=== PATIENT | female | born 1930 | race Caucasian/White ===

== ENCOUNTER 2017-01-19 20:02 | Emergency (ER) | payer OTHER ==
[~2017-01-19] VITALS: Ht 154.9 cm; Wt 45.9 kg
[~2017-01-19 20:02] MED LIST: CALCTAB98 PO; CIPR500T4 PO; MULT-65 PO; VITA400D PO
[2017-01-19 20:05] VITALS: BP 145/66; PULSE 81; RESP 16; TEMP 98.3; O2SAT 100
--- NOTE | 2017-01-19 20:26 | PD ---
HPI Chief Complaint: fall Time Seen by Provider: 20:21 Travel History International Travel<30 days: No Contact w/Intl Traveler<30days: No Traveled to known affect area: No History of Present Illness HPI 86-year-old female with history of hypertension, presents to the ER today because she had fallen while going down the stairs onto her right hip, is having hip pain. She is unable to put weight on the right hip in range the right hip secondary to pain. She denies any head injury, loss of consciousness , or any other injuries. She states it was a trip and fall, got her feet caught. Modifying Factors: None Associated Signs & Symptoms: Fall, right hip injury Risk Factors: Elderly PFSH Past Medical History Blood Disorders: No Heart Rhythm Problems: No Cancer: No Cardiovascular Problems: Yes (occas. pvc) High Cholesterol: No Chest Pain: No Congestive Heart Failure: No Endocrine: No Genitourinary: No Immune Disorder: No Musculoskeletal: Yes (osteoporais, osteopenia left femoral head) Neurologic: No Psychiatric: No Reproductive: No Respiratory: No Tubal Ligation: Yes Past Surgical History Appendectomy: Yes Cholecystectomy: Yes Hysterectomy: Yes Social History Alcohol Use: Yes (GLASS OF WINE AT NIGHT) Tobacco Use: No Substance Use: No Allergies-Medications (Allergen,Severity, Reaction): Coded Allergies: No Known Allergies (Unverified , 07/05/13) Reported Meds & Prescriptions Reported Meds & Active Scripts Active Reported Multiple Vitamin 1 Tab 1 Tab PO DAILY Review of Systems Except as stated in HPI: all other systems reviewed are Neg Physical Exam Narrative GENERAL: Well-developed elderly white female patient in mild distress. Awake and oriented 3. SKIN: Focused skin assessment warm/dry. HEAD: Atraumatic. Normocephalic. EYES: Pupils equal and round. No scleral icterus. No injection or drainage. ENT: No nasal bleeding or discharge. Mucous membranes pink and moist. NECK: Trachea midline. No JVD. Supple. CARDIOVASCULAR: Regular rate and rhythm. No murmur appreciated. RESPIRATORY: No accessory muscle use. Clear to auscultation. Breath sounds equal bilaterally. GASTROINTESTINAL: Abdomen soft, non-tender, nondistended. Hepatic and splenic margins not palpable. MUSCULOSKELETAL: No obvious deformities. No clubbing. No cyanosis. No edema. Pelvis: Stable, tender to palpation of the right hip area. Decreased range of motion of the right hip. NEUROLOGICAL: Awake and alert. No obvious cranial nerve deficits. Motor grossly within normal limits. Normal speech. PSYCHIATRIC: Appropriate mood and affect; insight and judgment normal. Data Data Last Documented VS Vital Signs Date Time Temp Pulse Resp B/P Pulse Ox O2 Delivery O2 Flow Rate FiO2 01/19/17 20:05 98.3 81 16 145/66 100 Orders Electrocardiogram (01/19/17 20:21) Complete Blood Count With Diff (01/19/17 20:21) Comprehensive Metabolic Panel (01/19/17 20:21) Prothrombin Time / Inr (Pt) (01/19/17 20:21) Act Partial Throm Time (Ptt) (01/19/17 20:21) Urinalysis - C+S If Indicated (01/19/17 20:21) Chest, Single Ap (01/19/17 20:21) Hip, Uni(Ap&Lat) W Ap Pelvis (01/19/17 20:21) Iv Access Insert/Monitor (01/19/17 20:21) Oximetry (01/19/17 20:21) Ecg Monitoring (01/19/17 20:21) Sodium Chloride 0.9% Flush (Ns Flush) (01/19/17 20:30) Labs Laboratory Tests Test 01/19/17 20:20 White Blood Count 15.1 TH/MM3 Red Blood Count 3.21 MIL/MM3 Hemoglobin 9.5 GM/DL Hematocrit 27.9 % Mean Corpuscular Volume 86.8 FL Mean Corpuscular Hemoglobin 29.5 PG Mean Corpuscular Hemoglobin 34.0 % Concent Red Cell Distribution Width 13.6 % Platelet Count 220 TH/MM3 Mean Platelet Volume 8.1 FL Neutrophils (%) (Auto) 83.3 % Lymphocytes (%) (Auto) 11.2 % Monocytes (%) (Auto) 4.7 % Eosinophils (%) (Auto) 0.3 % Basophils (%) (Auto) 0.5 % Neutrophils # (Auto) 12.6 TH/MM3 Lymphocytes # (Auto) 1.7 TH/MM3 Monocytes # (Auto) 0.7 TH/MM3 Eosinophils # (Auto) 0.0 TH/MM3 Basophils # (Auto) 0.1 TH/MM3 CBC Comment DIFF FINAL Differential Comment Prothrombin Time 10.7 SEC Prothromb Time International 1.0 RATIO Ratio Activated Partial 24.4 SEC Thromboplast Time Sodium Level 137 MEQ/L Potassium Level 3.5 MEQ/L Chloride Level 104 MEQ/L Carbon Dioxide Level 22.5 MEQ/L Anion Gap 11 MEQ/L Blood Urea Nitrogen 23 MG/DL Creatinine 0.74 MG/DL Estimat Glomerular Filtration 74 ML/MIN Rate Random Glucose 134 MG/DL Calcium Level 8.6 MG/DL Total Bilirubin 0.5 MG/DL Aspartate Amino Transf 97 U/L (AST/SGOT) Alanine Aminotransferase 54 U/L (ALT/SGPT) Alkaline Phosphatase 71 U/L Total Protein 6.4 GM/DL Albumin 3.5 GM/DL MDM Medical Decision Making Medical Screen Exam Complete: Yes Emergency Medical Condition: Yes Medical Record Reviewed: Yes Interpretation(s) Laboratory Tests Test 01/19/17 20:20 White Blood Count 15.1 TH/MM3 (4.0-11.0) Red Blood Count 3.21 MIL/MM3 (4.00-5.30) Hemoglobin 9.5 GM/DL (11.6-15.3) Hematocrit 27.9 % (35.0-46.0) Neutrophils (%) (Auto) 83.3 % (16.0-70.0) Neutrophils # (Auto) 12.6 TH/MM3 (1.8-7.7) Blood Urea Nitrogen 23 MG/DL (7-18) Estimat Glomerular Filtration 74 ML/MIN (>89) Rate Random Glucose 134 MG/DL (74-106) Aspartate Amino Transf 97 U/L (15-37) (AST/SGOT) Alanine Aminotransferase 54 U/L (10-53) (ALT/SGPT) Last 24 hours Impressions Chest X-Ray 01/19/172020 Signed Impressions: Service Date/Time: Thursday, January 19, 2017 20:35 - CONCLUSION: Hyperinflated lungs. Omari Dodge MD Differential Diagnosis Right hip injuryfractures versus dislocations versus contusions Narrative Course X-rays show a superior and inferior pubic ramus fracture on the right. No signs of hip fracture. Lab work is otherwise unremarkable. At this point, my plan would be to release the patient with follow-up to orthopedics. We'll give her symptomatic relief or pain. Patient lives with family and has help. We will give her a walker. Return for any worsening in pain or new symptoms as needed. The plan has discussed with her and she states understanding. Diagnosis Primary Impression: Pubic ramus fracture Med/Other Pt SpecificInfo: Prescription(s) given Scripts Hydrocodone-Acetaminophen (Lortab)5-325 Mg Tab1-2 Tab PO Q6H PRN (PAIN) #20 TAB Ref 0 Prov:Alyssa Tony MD 01/19/17 Disposition: 01 DISCHARGE HOME Condition: Stable Alyssa Tony MD January 19, 2017 20:26
[2017-01-19] MEDS ORDERED: SODIUM CHLORIDE 0.9% FLUSH 10 ML FLUSH IVF PRN (20:30)
[2017-01-19 20:50] LABS: AUTOMATED NEUTROPHIL # 12.6 TH/MM3 (1.8-7.7); BASOPHIL # 0.1 TH/MM3 (0-0.2); BASOPHIL % 0.5 % (0.0-2.0); EOSINOPHIL % 0.3 % (0.0-4.0); HEMATOCRIT 27.9 % (35.0-46.0); HEMO FLAGS DIFF FINAL; LYMPH % 11.2 % (9.0-44.0); LYMPHOCYTE # 1.7 TH/MM3 (1.0-4.8); MEAN CELL VOLUME 86.8 FL (80.0-100.0); MEAN CORPUSCULAR HEMOGLOBIN 29.5 PG (27.0-34.0); MONO % 4.7 % (0.0-8.0); NEUT % 83.3 % (16.0-70.0); PLATELET COUNT 220 TH/MM3 (150-450); RED BLOOD COUNT 3.21 MIL/MM3 (4.00-5.30); RED CELL DISTRIBUTION WIDTH 13.6 % (11.6-17.2); WHITE BLOOD COUNT 15.1 TH/MM3 (4.0-11.0)
--- NOTE | 2017-01-19 20:50 | RADRPT ---
EXAM DATE/TIME: 01/19/2017 20:35 [facility] COMPARISON: CHEST SINGLE AP, July 05, 2013, 9:45. INDICATIONS : Shortness of breath after falling on right side. MEDICAL HISTORY : None. SURGICAL HISTORY : None. ENCOUNTER: Initial ACUITY: 1 day PAIN SCORE: 0/10 LOCATION: Bilateral chest FINDINGS: A single view of the chest demonstrates the lungs to be symmetrically aerated without evidence of mas s, infiltrate or effusion. The lungs are hyperinflated. The cardiomediastinal contours are unremarka ble. Osseous structures are intact. CONCLUSION: Hyperinflated lungs. Omari Dodge MD on January 19, 2017 at 20:48 Board Certified Radiologist. This report was verified electronically.
[2017-01-19] MEDS ORDERED: MULTTAB67 PO (20:55)
--- NOTE | 2017-01-19 20:56 | RADRPT ---
EXAM DATE/TIME: 01/19/2017 20:36 [facility] COMPARISON: No previous studies available for comparison. INDICATIONS : Right hip/pelvic pain after fall. MEDICAL HISTORY : None. SURGICAL HISTORY : None. ENCOUNTER: Initial ACUITY: 1 day PAIN SCORE: 10/10 LOCATION: Right hip FINDINGS: There is fracturing of the superior and inferior pubic rami on the right. No other fracture is seen. The hip joints are aligned. The sacroiliac joints are intact. The pubic symphysis is aligned. CONCLUSION: Fracturing of the superior and inferior pubic rami on the right. Omari Dodge MD on January 19, 2017 at 20:50 Board Certified Radiologist. This report was verified electronically.
[2017-01-19 21:00] LABS: APTT (PATIENT) 24.4 SEC (24.3-30.1); PROTHROMBIN TIME - PATIENT 10.7 SEC (9.8-11.6)
[2017-01-19 21:13] LABS: ANION GAP 11 MEQ/L (5-15); AST (GOT) 97 U/L (15-37); BICARBONATE 22.5 MEQ/L (21.0-32.0); BLOOD UREA NITROGEN 23 MG/DL (7-18); CHLORIDE 104 MEQ/L (98-107); GLOMERULAR FILTRATION RATE 74 ML/MIN (>89); POTASSIUM 3.5 MEQ/L (3.5-5.1); SODIUM (NA) 137 MEQ/L (136-145)
[2017-01-19 21:25] LABS: ALKALINE PHOSPHATASE 71 U/L (45-117); ALT (GPT) 54 U/L (10-53); TOTAL BILIRUBIN ADULT 0.5 MG/DL (0.2-1.0)
[2017-01-19] MEDS ORDERED: HYDR-3533 PO (21:38)
[2017-01-19] MEDS ORDERED: WALKER/ADULT/FO1 MIS (21:42)
[2017-01-19] MEDS ORDERED: ACETAMINOPHEN/HYDROcodone 325 MG/5 MG TAB PO ONE (22:00)
--- NOTE | 2017-01-20 16:44 | EKG ---
Date Performed: 01/19/2017 Time Performed: 21:06:42 PTAGE: 86 years EKG: Sinus rhythm INCOMPLETE RIGHT BUNDLE BRANCH BLOCK BORDERLINE ECG NO PREVIOUS TRACING DOCTOR: Maria Teresa Galarza Interpretating Date/Time 01/20/2017 16:41:29
== END 2017-01-19 23:35 | disposition home or self-care (01) ==
LOC: NEPE 20:02
DX: S32.511A Fracture of superior rim of right pubis, initial encounter for closed fracture (principal); I45.10 Unspecified right bundle-branch block; W10.9XXA Fall (on) (from) unspecified stairs and steps, initial encounter
CPT/HCPCS: 71010; 73502; 80053; 85025; 85610; 85730; 93005

== ENCOUNTER 2017-09-21 10:39 | Emergency (ER) | payer OTHER ==
[~2017-09-21 10:39] MED LIST changes: -CALCTAB98 PO; -CIPR500T4 PO; +HYDR-3533 PO; -MULT-65 PO; +MULTTAB67 PO; -VITA400D PO; +WALKER/ADULT/FO1 MIS
[2017-09-21 10:41] VITALS: BP 149/67; PULSE 64; RESP 16; TEMP 97.5; O2SAT 99
[2017-09-21] MEDS ORDERED: SODIUM CHLORID 0.9% 500 ML INJ 500 ML IV ONE (11:15)
--- NOTE | 2017-09-21 11:18 | PD ---
HPI Chief Complaint: Altered Mental Status Time Seen by Provider: 11:01 Travel History International Travel<30 days: No Contact w/Intl Traveler<30days: No Traveled to known affect area: No History of Present Illness HPI The chin is a 87-year-old female who presents to the emergency department with her daughter for evaluation of progressing dementia, hearing voices, and hallucinations. The daughter states the patient has a history of early dementia, was recently placed on Lexapro and had the Lexapro increased from 5 mg daily to 10 mg daily. The daughter states that since the increase in the Lexapro in July the patient has had increasing symptoms of dementia as well as auditory hallucinations. The patient does hear different voices in her head, states these voices are intermittent. She denies any history of schizophrenia or schizoaffective disorder. The patient was seen on an outpatient basis, but had no imaging such as CT of the brain or MRI, the daughter is unsure if they checked her thyroid studies. The patient was recently seen for a UTI and influenza in [place], has been taking her Cipro intermittently but not as instructed. The patient denies any current physical complaints such as chest pain, shortness of breath, nausea, vomiting, or abdominal pain. PFSH Past Medical History Blood Disorders: No Anxiety: Yes Heart Rhythm Problems: No Cancer: No Cardiovascular Problems: Yes (occas. pvc) High Cholesterol: Yes Chest Pain: No Congestive Heart Failure: No Diminished Hearing: Yes Endocrine: No Gastrointestinal Disorders: Yes (gallbladder) Hypertension: Yes Immune Disorder: No Musculoskeletal: Yes (osteoporais, osteopenia left femoral head) Tubal Ligation: Yes Past Surgical History Appendectomy: Yes Cholecystectomy: Yes Hysterectomy: Yes Other Surgery: Yes Social History Alcohol Use: Yes (GLASS OF WINE AT NIGHT) Tobacco Use: No Substance Use: No Allergies-Medications (Allergen,Severity, Reaction): Coded Allergies: No Known Allergies (Unverified , 07/05/13) Reported Meds & Prescriptions Reported Meds & Active Scripts Active Seroquel (Quetiapine Fumarate) 25 Mg Tab 12.5 Mg PO BID 30 Days Walker/Adult/Folding (Device) 1 Mis Mis 1 Ea .ROUTE DIRECTED Lortab (Hydrocodone-Acetaminophen) 5-325 Mg Tab 1-2 Tab PO Q6H PRN Reported Celecoxib 100 Mg Cap 100 Mg PO BID Pataday Opth 0.2% (Olopatadine HCl) 0.2 % Drops 1 Drop EACH EYE DAILY Mometasone Nasal [place] 50 Mcg/Act [place] 2 [place] EACH NARE DAILY Tramadol-Acetaminophen 37.5-325 mg Tab 1 Tab PO Q6H PRN Advair Diskus Inh (Fluticasone-Salmeterol Inh) 250-50 Mcg/Blist Aer 1 Puff INH BID Rinse mouth after use. Bisoprolol (Bisoprolol Fumarate) 5 Mg Tab 5 Mg PO DAILY Atorvastatin (Atorvastatin Calcium) 80 Mg Tab 80 Mg PO HS Pantoprazole (Pantoprazole Sodium) 40 Mg Tab 40 Mg PO DAILY Xarelto (Rivaroxaban) 20 Mg Tab 20 Mg PO DAILY Spiriva Handihaler (Tiotropium Inh) 18 Mcg Cap 18 Mcg INH DAILY 1 capsule = 18 mcg Multiple Vitamin 1 Tab 1 Tab PO DAILY Review of Systems Except as stated in HPI: all other systems reviewed are Neg Cardiovascular: No: Chest Pain or Discomfort Respiratory: No: Shortness of Breath Gastrointestinal: No: Nausea, Vomiting, Abdominal Pain Neurologic: Positive: Change in Mentation Psychiatric: Positive: Depression Physical Exam Narrative GENERAL: Awake, alert, pleasant 87 year-old female who appears her stated age and is in no acute respiratory distress. SKIN: Focused skin assessment warm/dry. HEAD: Atraumatic. Normocephalic. EYES: Pupils equal and round. 3 mm bilateral and reactive. ENT: No nasal bleeding or discharge. Upper dentures in place. NECK: Trachea midline. No JVD. CARDIOVASCULAR: Regular rate and rhythm. No murmur appreciated. RESPIRATORY: No accessory muscle use. Clear to auscultation. Breath sounds equal bilaterally. GASTROINTESTINAL: Abdomen soft, non-tender, nondistended. No rebound tenderness. MUSCULOSKELETAL: No obvious deformities. No clubbing. No cyanosis. No edema. NEUROLOGICAL: Awake and alert. No obvious cranial nerve deficits. Motor grossly within normal limits. Normal speech. Nonfocal. Oriented to person, place, month, year, and mica patcher. PSYCHIATRIC: Appropriate mood and affect; insight and judgment normal. Data Data Last Documented VS Vital Signs Date Time Temp Pulse Resp B/P (MAP) Pulse Ox O2 Delivery O2 Flow Rate FiO2 09/21/17 14:18 66 116/57 (76) 100 Room Air 09/21/17 10:41 97.5 16 Orders Orders Complete Blood Count With Diff (09/21/17 11:09) Comprehensive Metabolic Panel (09/21/17 11:09) Thyroid Stimulating Hormone (09/21/17 11:09) Urinalysis - C+S If Indicated (09/21/17 11:09) Electrocardiogram (09/21/17 11:09) Psych Screen (09/21/17 11:09) Drug Screen, Random Urine (09/21/17 11:09) Ct Brain W/O Iv Contrast(Rout) (09/21/17 ) Sodium Chlorid 0.9% 500 Ml Inj (Ns 500 M (09/21/17 11:15) Ed Discharge Order (09/21/17 15:04) Labs Laboratory Tests Test 09/21/17 11:15 09/21/17 11:16 Urine Color YELLOW Urine Turbidity CLEAR Urine pH 6.5 Urine Specific [place] 1.012 Urine Protein NEG mg/dL Urine Glucose (UA) NEG mg/dL Urine Ketones NEG mg/dL Urine Occult Blood NEG Urine Nitrite NEG Urine Bilirubin NEG Urine Urobilinogen LESS THAN 2.0 MG/DL Urine Leukocyte Esterase NEG Urine RBC 1 /hpf Urine WBC 1 /hpf Urine Squamous Epithelial Cells <1 /hpf Urine Mucus FEW /lpf Microscopic Urinalysis Comment CULT NOT INDICATED Urine Opiates Screen NEG Urine Barbiturates Screen NEG Urine Amphetamines Screen NEG Urine Benzodiazepines Screen NEG Urine Cocaine Screen NEG Urine Cannabinoids Screen NEG White Blood Count 8.2 TH/MM3 Red Blood Count 4.17 MIL/MM3 Hemoglobin 12.7 GM/DL Hematocrit 36.5 % Mean Corpuscular Volume 87.6 FL Mean Corpuscular Hemoglobin 30.4 PG Mean Corpuscular Hemoglobin Concent 34.7 % Red Cell Distribution Width 13.7 % Platelet Count 358 TH/MM3 Mean Platelet Volume 7.5 FL Neutrophils (%) (Auto) 63.6 % Lymphocytes (%) (Auto) 25.0 % Monocytes (%) (Auto) 8.3 % Eosinophils (%) (Auto) 2.9 % Basophils (%) (Auto) 0.2 % Neutrophils # (Auto) 5.2 TH/MM3 Lymphocytes # (Auto) 2.0 TH/MM3 Monocytes # (Auto) 0.7 TH/MM3 Eosinophils # (Auto) 0.2 TH/MM3 Basophils # (Auto) 0.0 TH/MM3 CBC Comment DIFF FINAL Differential Comment Blood Urea Nitrogen 16 MG/DL Creatinine 0.81 MG/DL Random Glucose 100 MG/DL Total Protein 7.1 GM/DL Albumin 3.7 GM/DL Calcium Level 8.7 MG/DL Alkaline Phosphatase 81 U/L Aspartate Amino Transf (AST/SGOT) 30 U/L Alanine Aminotransferase (ALT/SGPT) 19 U/L Total Bilirubin 0.9 MG/DL Sodium Level 138 MEQ/L Potassium Level 3.8 MEQ/L Chloride Level 103 MEQ/L Carbon Dioxide Level 25.8 MEQ/L Anion Gap 9 MEQ/L Estimat Glomerular Filtration Rate 67 ML/MIN Thyroid Stimulating Hormone 3rd Gen 1.150 uIU/ML MDM Medical Decision Making Medical Screen Exam Complete: Yes Emergency Medical Condition: Yes Medical Record Reviewed: Yes Interpretation(s) EKG reveals sinus rhythm with occasional ectopic or premature complex. Q wave noted in lead V1 and V2. Last Impressions Head CT 09/21/17 0000 Signed Impressions: Service Date/Time: Thursday, September 21, 2017 11:22 - CONCLUSION: Slight atrophic and small vessel ischemic changes without any evidence for acute hemorrhage or mass effect. Xiao Holt MD Laboratory Tests Test 09/21/17 11:15 09/21/17 11:16 Urine Color YELLOW Urine Turbidity CLEAR Urine pH 6.5 Urine Specific [place] 1.012 Urine Protein NEG mg/dL Urine Glucose (UA) NEG mg/dL Urine Ketones NEG mg/dL Urine Occult Blood NEG Urine Nitrite NEG Urine Bilirubin NEG Urine Urobilinogen LESS THAN 2.0 MG/DL Urine Leukocyte Esterase NEG Urine RBC 1 /hpf Urine WBC 1 /hpf Urine Squamous Epithelial Cells <1 /hpf Urine Mucus FEW /lpf Microscopic Urinalysis Comment CULT NOT INDICATED Urine Opiates Screen NEG Urine Barbiturates Screen NEG Urine Amphetamines Screen NEG Urine Benzodiazepines Screen NEG Urine Cocaine Screen NEG Urine Cannabinoids Screen NEG White Blood Count 8.2 TH/MM3 Red Blood Count 4.17 MIL/MM3 Hemoglobin 12.7 GM/DL Hematocrit 36.5 % Mean Corpuscular Volume 87.6 FL Mean Corpuscular Hemoglobin 30.4 PG Mean Corpuscular Hemoglobin Concent 34.7 % Red Cell Distribution Width 13.7 % Platelet Count 358 TH/MM3 Mean Platelet Volume 7.5 FL Neutrophils (%) (Auto) 63.6 % Lymphocytes (%) (Auto) 25.0 % Monocytes (%) (Auto) 8.3 % Eosinophils (%) (Auto) 2.9 % Basophils (%) (Auto) 0.2 % Neutrophils # (Auto) 5.2 TH/MM3 Lymphocytes # (Auto) 2.0 TH/MM3 Monocytes # (Auto) 0.7 TH/MM3 Eosinophils # (Auto) 0.2 TH/MM3 Basophils # (Auto) 0.0 TH/MM3 CBC Comment DIFF FINAL Differential Comment Blood Urea Nitrogen 16 MG/DL Creatinine 0.81 MG/DL Random Glucose 100 MG/DL Total Protein 7.1 GM/DL Albumin 3.7 GM/DL Calcium Level 8.7 MG/DL Alkaline Phosphatase 81 U/L Aspartate Amino Transf (AST/SGOT) 30 U/L Alanine Aminotransferase (ALT/SGPT) 19 U/L Total Bilirubin 0.9 MG/DL Sodium Level 138 MEQ/L Potassium Level 3.8 MEQ/L Chloride Level 103 MEQ/L Carbon Dioxide Level 25.8 MEQ/L Anion Gap 9 MEQ/L Estimat Glomerular Filtration Rate 67 ML/MIN Thyroid Stimulating Hormone 3rd Gen 1.150 uIU/ML Differential Diagnosis Differential diagnosis includes delirium, Alzheimer's disease, UTI, hypothyroidism, frontal brain lesion, subdural hemorrhage, hyponatremia, medication side effect. Narrative Course IV was established, labs are drawn and sent, and the patient was placed on cardiac telemetry monitoring and continuous pulse oximetry monitoring. CT of the brain was obtained. UA was sent to lab. TSH was sent to lab. Psychiatric evaluation was ordered. CT the brain reveals atrophic changes and chronic small vessel seeming changes, no acute findings. TSH is normal. UA is unremarkable. Sodium is normal. Laboratory evaluation is essentially unremarkable. It appears the patient has some degree of dementia, recent auditory hallucinations which may be psychiatric versus medication induced. Therefore, psychiatric evaluation was ordered. Patient is medically cleared to be evaluated by psychiatry. The patient was evaluated by the psychiatrist who offered admission, however, patient and family declined admission. The patient recommended starting Seroquel 12.5 mg twice a day and gave the family some information regards to outpatient follow-up with a psychiatrist. The family is comfortable with this plan of care and disposition. The patient will be discharged home with her daughter. They are advised to return if symptoms worsen or progress. Diagnosis Primary Impression: Dementia Qualified Codes: F03.90 - Unspecified dementia without behavioral disturbance Additional Impression: Hallucinations Patient Instructions: General Instructions Additional Instructions: Please provide the family a copy of the CT results and lab results at discharge. Seroquel as directed by psychiatry. Follow-up with a psychiatrist on an outpatient basis. Return if symptoms worsen or progress. Med/Other Pt SpecificInfo: Prescription(s) given Scripts Quetiapine (Seroquel) 25 Mg Tab 12.5 MG PO BID for 30 Days, #30 TAB 0 Refills Prov: Gamal Dawn MD 09/21/17 Disposition: 01 DISCHARGE HOME Condition: Stable Gamal Dawn MD Sep 21, 2017 11:18
--- NOTE | 2017-09-21 11:40 | RADRPT ---
EXAM DATE/TIME: 09/21/2017 11:22 [facility] COMPARISON: No previous studies available for comparison. INDICATIONS : Altered mental status, confusion. RADIATION DOSE: 36.11 CTDIvol (mGy) MEDICAL HISTORY : Cardiovascular disease. Hypertension. SURGICAL HISTORY : None. ENCOUNTER: Initial ACUITY: 1 day PAIN SCALE: 0/10 LOCATION: cranial TECHNIQUE: Multiple contiguous axial images were obtained of the head. Using automated exposure control and adj ustment of the mA and/or kV according to patient size, radiation dose was kept as low as reasonably a chievable to obtain optimal diagnostic quality images. DICOM format image data is available electro nically for review and comparison. FINDINGS: There is no evidence for intracranial hemorrhage, mass effect, mass lesions, or edema. The visualize d bony structures appear intact. Slight degree of brain atrophy is seen. Slight periventricular whit e matter changes are seen nonspecific mostly consistent with chronic small vessel ischemic changes. There are no signs of acute infarction for technique. CONCLUSION: Slight atrophic and small vessel ischemic changes without any evidence for acute hemorrhage or mass effect. Xiao Holt MD on September 21, 2017 at 11:37 Board Certified Radiologist. This report was verified electronically.
[2017-09-21 11:41] LABS: AUTOMATED NEUTROPHIL # 5.2 TH/MM3 (1.8-7.7); BASOPHIL % 0.2 % (0.0-2.0); EOSINOPHIL # 0.2 TH/MM3 (0-0.4); EOSINOPHIL % 2.9 % (0.0-4.0); HEMATOCRIT 36.5 % (35.0-46.0); HEMOGLOBIN 12.7 GM/DL (11.6-15.3); MEAN CELL VOLUME 87.6 FL (80.0-100.0); MEAN CORPUSCULAR HEMOGLOBIN 30.4 PG (27.0-34.0); MEAN CORPUSCULAR HGB CONC 34.7 % (32.0-36.0); MEAN PLATELET VOLUME 7.5 FL (7.0-11.0); MONO % 8.3 % (0.0-8.0); MONOCYTE # 0.7 TH/MM3 (0-0.9); NEUT % 63.6 % (16.0-70.0); PLATELET COUNT 358 TH/MM3 (150-450); RED BLOOD COUNT 4.17 MIL/MM3 (4.00-5.30); RED CELL DISTRIBUTION WIDTH 13.7 % (11.6-17.2); WHITE BLOOD COUNT 8.2 TH/MM3 (4.0-11.0)
[2017-09-21 11:51] LABS: BILIRUBIN, URINE NEG (NEG); BLOOD, URINE NEG (NEG); GLUCOSE,URINE NEG (NEG); KETONE, URINE NEG (NEG); MUCUS URINE FEW /lpf (OCC); NITRITE,URINE NEG (NEG); PH, URINE 6.5 (5.0-8.5); SQUAMOUS EPITHELIAL CELL URINE <1 /hpf (0-5); URINE COLOR YELLOW (YELLW/STRAW); URINE LEUKOCYTE ESTERASE NEG (NEG)
[2017-09-21 12:04] LABS: ALBUMIN 3.7 GM/DL (3.4-5.0); AST (GOT) 30 U/L (15-37); BICARBONATE 25.8 MEQ/L (21.0-32.0); BLOOD UREA NITROGEN 16 MG/DL (7-18); CALCIUM 8.7 MG/DL (8.5-10.1); CHLORIDE 103 MEQ/L (98-107); CREATININE 0.81 MG/DL (0.50-1.00); GLOMERULAR FILTRATION RATE 67 ML/MIN (>89); GLUCOSE,RANDOM 100 MG/DL (74-106); SODIUM (NA) 138 MEQ/L (136-145)
[2017-09-21 12:05] LABS: ALT (GPT) 19 U/L (10-53)
[2017-09-21 12:15] LABS: ALKALINE PHOSPHATASE 81 U/L (45-117); TOTAL BILIRUBIN ADULT 0.9 MG/DL (0.2-1.0); TOTAL PROTEIN 7.1 GM/DL (6.4-8.2)
[2017-09-21 13:00] VITALS: BP 167/62; PULSE 67; O2SAT 100
[2017-09-21 14:18] VITALS: BP 116/57; PULSE 66; O2SAT 100
[2017-09-21] MEDS ORDERED: ADVA250A INH (14:25)
[2017-09-21] MEDS ORDERED: SPIRCAP INH (14:25)
[2017-09-21] MEDS ORDERED: TRAM-388 PO (14:25)
[2017-09-21] MEDS ORDERED: BISO5TAB5 PO (14:25)
[2017-09-21] MEDS ORDERED: ATOR80TA45 PO (14:25)
[2017-09-21] MEDS ORDERED: PATA0.2S EACH EYE (14:25)
[2017-09-21] MEDS ORDERED: MOME1SPR2 EACH NARE (14:25)
[2017-09-21] MEDS ORDERED: CELE1CAP6 PO (14:25)
[2017-09-21] MEDS ORDERED: PANT40TA3 PO (14:25)
[2017-09-21] MEDS ORDERED: XARE20TA PO (14:25)
[2017-09-21] MEDS ORDERED: SERO25TA PO (14:52)
--- NOTE | 2017-09-21 15:16 | PD.PSY.CON ---
Provisional Diagnosis Admission Date [place] I. Unspecified psychosis, rule out late onset schizophrenia, rule out major neurocognitive disorder [place] II. Deferred [place] III. Hypertension History of Present Illness Service Psychiatry Consult Requested By ER team Reason for Consult Psychosis Primary Care Physician Celia Kaufman MD HPI The patient is 87-year-old woman, domiciled with her daughter, , with psychiatric history of anxiety, no previous psychiatric hospitalizations, no previous suicidal attempts, she has been in Lexapro 10 mg in the past, medical history hypertension, who presents to the emergency department with her daughter for evaluation of progressing dementia, hearing voices, and hallucinations. Medical workup has been done, patient is now medically cleared, labs were reviewed, CT scan basically unremarkable. Chart was reviewed. Collateral information from her daughter obtained. On psychiatric evaluation the patient is calm, cooperative, very pleasant. The patient reports that for at least the last 4 months she has been having perceptual disturbances. She has been experiencing usually visual and auditory hallucinations in the evening of people, kids and adults, sometimes animal coming inside her room and making derogatory comments toward her and sometimes commanding her to do things. She says that in the last weeks these perceptual disturbances has been progressing and increasing in its severity, frequency and intensity. She said that sometimes she cannot define the hallucinations from the reality and she becomes very anxious and scared. She says that what is a scary is that in the last day the people that she sees "are cruel with me". The patient also has been increasingly paranoid toward her kids, making accusatory comments and become very guarded. The patient denies depressive symptoms, she denies anhedonia, she denies hopelessness, she denies helplessness , she denies suicidal and homicidal ideation. She reports very good protective factors, she is goal oriented and future oriented. The patient is completely oriented 3. Mini-Mental at this moment is 27, which just some deficit in recent recall. Draw clock test is perfect. She reports taking a glass of wine 2 or 3 times per day, denies the use of illegal drugs. Review of Systems Constitutional: DENIES: Diaphoretic episodes, Fatigue, Fever, Weight gain, Weight loss, Chills, Dizziness, Change in appetite, Night Sweats Endocrine: DENIES: Abnorml menstrual pattern, Heat/cold intolerance, Polydipsia , Polyuria, Polyphagia Eyes: DENIES: Blurred vision, Diplopia, Eye inflammation, Eye pain, Vision loss , Photosensitivity, Double Vision Ears, nose, mouth, throat: DENIES: Tinnitus, Hearing loss, Vertigo, Nasal discharge, Oral lesions, Throat pain, Hoarseness, Ear Pain, Running Nose, Epistaxis, Sinus Pain, Toothache, Odynophagia Respiratory: DENIES: Apneas, Cough, Snoring, Wheezing, Hemoptysis, Sputum production, Shortness of breath Cardiovascular: DENIES: Chest pain, Palpitations, Syncope, Dyspnea on Exertion , PND, Lower Extremity Edema, Orthopnea, Claudication Gastrointestinal: DENIES: Abdominal pain, Black stools, Bloody stools, Constipation, Diarrhea, Nausea, Vomiting, Difficulty Swallowing, Anorexia Musculoskeletal: DENIES: Joint pain, Muscle aches, Stiffness, Joint Swelling, Back pain, Neck pain Integumentary: DENIES: Abnormal pigmentation, Pruritus, Rash, Nail changes, Breast masses, Breast skin changes, Nipple discharge Hematologic/lymphatic: DENIES: Bruising, Lymphadenopathy Immunologic/allergic: DENIES: Eczema, Urticaria Neurologic: DENIES: Abnormal gait, Headache, Localized weakness, Paresthesias, Seizures, Speech Problems, Tremor, Poor Balance Psychiatric: DENIES: Anxiety, Confusion, Mood changes, Depression, Hallucinations, Agitation, Suicidal Ideation, Homicidal Ideation, Delusions Past Family Social History Coded Allergies: No Known Allergies (Unverified , 07/05/13) Active Scripts Quetiapine (Seroquel) 25 Mg Tab, 12.5 MG PO BID for 30 Days, #30 TAB 0 Refills Prov:Gamal Dawn MD 09/21/17 Walker/Adult/Folding (Walker/Adult/Folding) 1 Mis Mis, 1 EA .ROUTE DIRECTED, #1 EA 0 Refills Prov:Alyssa Tony MD 01/19/17 Hydrocodone-Acetaminophen (Lortab) 5-325 Mg Tab, 1-2 TAB PO Q6H Y for PAIN, #20 TAB 0 Refills Prov:Alyssa Tony MD 01/19/17 Reported Medications Celecoxib (Celecoxib) 100 Mg Cap, 100 MG PO BID for Pain Management, CAP 0 Refills 09/21/17 Olopatadine Opth 0.2% (Pataday Opth 0.2%) 0.2 % Drops, 1 DROP EACH EYE DAILY for Allergies, #1 BOTTLE 0 Refills 09/21/17 Mometasone Nasal Ragan (Mometasone Nasal Ragan) 50 Mcg/Act Ragan, 2 SPRAY EACH NARE DAILY for Allergy Management, #1 BOTTLE 0 Refills 09/21/17 Tramadol-Acetaminophen (Tramadol-Acetaminophen) 37.5-325 mg Tab, 1 TAB PO Q6H Y for PAIN, TAB 0 Refills 09/21/17 Fluticasone-Salmeterol Inh (Advair Diskus Inh) 250-50 Mcg/Blist Aer, 1 PUFF INH BID, #1 INHALER 0 Refills Rinse mouth after use. 09/21/17 Bisoprolol (Bisoprolol) 5 Mg Tab, 5 MG PO DAILY for Blood Pressure Management, # 30 TAB 0 Refills 09/21/17 Atorvastatin (Atorvastatin) 80 Mg Tab, 80 MG PO HS for Cholesterol Management, # 30 TAB 0 Refills 09/21/17 Pantoprazole (Pantoprazole) 40 Mg Tab, 40 MG PO DAILY for Reflux, #30 TAB 0 Refills 09/21/17 Rivaroxaban (Xarelto) 20 Mg Tab, 20 MG PO DAILY for Blood Clot Prevention, TAB 0 Refills 09/21/17 Tiotropium Inh (Spiriva Handihaler) 18 Mcg Cap, 18 MCG INH DAILY for COPD, #30 CAP 0 Refills 1 capsule = 18 mcg 09/21/17 Multiple Vitamin (Multiple Vitamin) 1 Tab, 1 TAB PO DAILY for Nutritional Supplement, TAB 0 Refills 01/19/17 Family Psych History no family psychiatric history Social History Patient was born and raised in [place], she lives in [place] alone, but her daughter is her neighbor, she is , her highest level of education is has Patient's Strengths (min. 2) Family support Physical Exam No tremors, no EPS, no withdrawal, no psychomotor agitation retardation Vital Signs Vital Signs Date Time Temp Pulse Resp B/P (MAP) Pulse Ox O2 Delivery O2 Flow Rate FiO2 09/21/17 14:18 66 116/57 (76) 100 Room Air 09/21/17 10:41 97.5 16 Lab Results Test 09/21/17 11:15 09/21/17 11:16 Urine Color YELLOW Urine Turbidity CLEAR Urine pH 6.5 Urine Specific [place] 1.012 Urine Protein NEG mg/dL Urine Glucose (UA) NEG mg/dL Urine Ketones NEG mg/dL Urine Occult Blood NEG Urine Nitrite NEG Urine Bilirubin NEG Urine Urobilinogen LESS THAN 2.0 MG/DL Urine Leukocyte Esterase NEG Urine RBC 1 /hpf Urine WBC 1 /hpf Urine Squamous Epithelial Cells <1 /hpf Urine Mucus FEW /lpf Microscopic Urinalysis Comment CULT NOT INDICATED Urine Opiates Screen NEG Urine Barbiturates Screen NEG Urine Amphetamines Screen NEG Urine Benzodiazepines Screen NEG Urine Cocaine Screen NEG Urine Cannabinoids Screen NEG White Blood Count 8.2 TH/MM3 Red Blood Count 4.17 MIL/MM3 Hemoglobin 12.7 GM/DL Hematocrit 36.5 % Mean Corpuscular Volume 87.6 FL Mean Corpuscular Hemoglobin 30.4 PG Mean Corpuscular Hemoglobin Concent 34.7 % Red Cell Distribution Width 13.7 % Platelet Count 358 TH/MM3 Mean Platelet Volume 7.5 FL Neutrophils (%) (Auto) 63.6 % Lymphocytes (%) (Auto) 25.0 % Monocytes (%) (Auto) 8.3 % Eosinophils (%) (Auto) 2.9 % Basophils (%) (Auto) 0.2 % Neutrophils # (Auto) 5.2 TH/MM3 Lymphocytes # (Auto) 2.0 TH/MM3 Monocytes # (Auto) 0.7 TH/MM3 Eosinophils # (Auto) 0.2 TH/MM3 Basophils # (Auto) 0.0 TH/MM3 CBC Comment DIFF FINAL Differential Comment Blood Urea Nitrogen 16 MG/DL Creatinine 0.81 MG/DL Random Glucose 100 MG/DL Total Protein 7.1 GM/DL Albumin 3.7 GM/DL Calcium Level 8.7 MG/DL Alkaline Phosphatase 81 U/L Aspartate Amino Transf (AST/SGOT) 30 U/L Alanine Aminotransferase (ALT/SGPT) 19 U/L Total Bilirubin 0.9 MG/DL Sodium Level 138 MEQ/L Potassium Level 3.8 MEQ/L Chloride Level 103 MEQ/L Carbon Dioxide Level 25.8 MEQ/L Anion Gap 9 MEQ/L Estimat Glomerular Filtration Rate 67 ML/MIN Thyroid Stimulating Hormone 3rd Gen 1.150 uIU/ML Mental Status Examination Appearance: Appropriate Consciousness: Alert Orientation: x4 Motor Activity: Normal gait Speech: Unremarkable Language: Adequate Fund of Knowledge: Adequate Attention and Concentration: Adequate Memory: Impaired Mood: Appropriate Affect: Appropriate Thought Process & Associations: Intact Thought Content: Appropriate Hallucination Type: None Delusion Type: None Suicidal Ideation: No Suicidal Plan: No Suicidal Intention: No Homicidal Ideation: No Homicidal Plan: No Homicidal Intention: No Insight: Adequate Judgment: Adequate Assessment & Plan Problem List: (1) Unspecified psychosis ICD Codes: F29 - Unspecified psychosis not due to a substance or known physiological condition Assessment & Plan: On psychiatric evaluation today the patient presents with about 2-3 months of persistent, everyday, increased in intensity, severity and frequency in the last 2 weeks visual and auditory hallucinations and also paranoia. The patient reports that usually at night she sees people coming inside her house talking to her and making derogatory comments about her behavior. The patient seems to be partially insightful about the nature of these perceptual disturbances. She reports feeling anxious and scared and sometimes she reacts negatively to this psychosis. Her daughter also reports that the patient has been increasingly paranoid toward her closest family members and friends. She has been making accusatory comments of her daughter being a stripper at not going to work and wanting to harm her. The patient denies depressive symptoms, she denies anhedonia, she denies hopelessness, she denies helplessness, she denies suicidal and homicidal ideation, she reports several protective factors for depression and suicidality, including no previous psychiatric history, very good family and social support, strong moral and shinto beliefs. The patient is fully oriented 3, she has a conserve abstraction, executive function, language skills, naming, concentration, attention. Her Mini-Mental is 27 of 30, draw clock test is excellent. Her CT shows Slight atrophic and small vessel ischemic changes without any evidence for acute hemorrhage or mass effect which might be consistent with early dementia. My impression is that current neuropsychiatric symptoms are related with mild neurocognitive disorder rather than a primary psychotic disorder. Obviously, more longitudinal observation and further investigation is needed. Neuropsychological testing are highly recommended. Labs seems to be normal. There is not need of involuntary psychiatric admission at this moment. I recommended a voluntary psychiatric admission, but patient and daughter declined. I recommend Seroquel 12.5 mg twice a day and to continue titration in outpatient basis. Several resources/information for geriatric psychiatry in the community were given to the patient. Assessment & Plan Estimated LOS: Cooper Dotson MD Sep 21, 2017 15:16
[2017-09-21 15:21] VITALS: BP 137/71
--- NOTE | 2017-09-22 12:36 | EKG ---
Date Performed: 09/21/2017 Time Performed: 12:12:20 PTAGE: 87 years EKG: Sinus rhythm WITH OCCASIONAL ECTOPIC PREMATURE COMPLEXES POSSIBLE RIGHT VENTRICULAR CONDUCTION DELAY SEPTAL MYOCA RDIAL INFARCTION ABNORMAL ECG Since PREVIOUS TRACING , no significant change noted PREVIOUS TRACIN01/19/2017 21.06 DOCTOR: Alfredito Dong Interpretating Date/Time 09/22/2017 12:35:40
== END 2017-09-21 15:27 | disposition home or self-care (01) ==
LOC: NEPC 10:39
DX: F03.90 Unspecified dementia, unspecified severity, without behavioral disturbance, psychotic disturbance, mood disturbance, and anxiety (principal); R44.0 Auditory hallucinations; R44.1 Visual hallucinations; R94.31 Abnormal electrocardiogram [ECG] [EKG]; E78.00 Pure hypercholesterolemia, unspecified; F41.9 Anxiety disorder, unspecified; I10 Essential (primary) hypertension
CPT/HCPCS: 70450; 80053; 80307; 81001; 84443; 85025; 93005; 96360; 99285; J7040

== ENCOUNTER 2018-01-22 16:01 | Emergency (ER) | payer OTHER ==
[~2018-01-22] VITALS: Ht 154.9 cm; Wt 45.0 kg
[~2018-01-22 16:01] MED LIST changes: +ADVA250A INH; +ATOR80TA45 PO; +BISO5TAB5 PO; +CELE1CAP6 PO; +MOME1SPR2 EACH NARE; +PANT40TA3 PO; +PATA0.2S EACH EYE; +SERO25TA PO; +SPIRCAP INH; +TRAM-388 PO; +XARE20TA PO
[2018-01-22 16:09] VITALS: BP 154/79; PULSE 79; RESP 16; TEMP 98.2; O2SAT 99
--- NOTE | 2018-01-22 16:25 | PD ---
HPI Chief Complaint: Pain: Acute or Chronic Time Seen by Provider: 16:16 Travel History International Travel<30 days: No Contact w/Intl Traveler<30days: No Traveled to known affect area: No History of Present Illness HPI 87-year-old female arrives with a complaint of left ankle pain. She attempted to stand just prior to ED arrival and fell twisting the left ankle causing sudden onset severe pain and swelling. Ice helps a little bit here in the ED. No head trauma. No pain or traumatic injury otherwise. PFSH Past Medical History Blood Disorders: No Anxiety: Yes Heart Rhythm Problems: No Cancer: No Cardiovascular Problems: Yes (occas. pvc) High Cholesterol: Yes Chest Pain: No Congestive Heart Failure: No Diminished Hearing: Yes Endocrine: No Gastrointestinal Disorders: Yes (gallbladder) Hypertension: Yes Immune Disorder: No Musculoskeletal: Yes (osteoporais, osteopenia left femoral head) Tubal Ligation: Yes Past Surgical History Appendectomy: Yes Cholecystectomy: Yes Hysterectomy: Yes Other Surgery: Yes Social History Alcohol Use: Yes (GLASS OF WINE AT NIGHT) Tobacco Use: No Substance Use: No Allergies-Medications (Allergen,Severity, Reaction): Coded Allergies: No Known Allergies (Unverified Adverse Reaction, Unknown, 01/22/18) Reported Meds & Prescriptions Reported Meds & Active Scripts Active Reported Lisinopril 20 Mg Tab 20 Mg PO DAILY Alprazolam 0.5 Mg Tab 0.5 Mg PO BID PRN Amlodipine (Amlodipine Besylate) 5 Mg Tab 5 Mg PO DAILY Review of Systems General / Constitutional: No: Fever Eyes: No: Diploplia HENT: No: Headaches, Rhinitis Cardiovascular: No: Palpitations Respiratory: No: Cough Gastrointestinal: No: Nausea, Vomiting Genitourinary: No: Decreased Urinary Output Physical Exam Narrative GENERAL: 87-year-old female pleasant well-nourished well-developed no acute distress Vital Signs Date Time Temp Pulse Resp B/P (MAP) Pulse Ox O2 Delivery O2 Flow Rate FiO2 01/22/18 16:09 98.2 79 16 154/79 (104) 99 SKIN: Warm and dry. HEAD: Normocephalic. EYES: No scleral icterus. No injection or drainage. GASTROINTESTINAL: Abdomen soft, non-tender, nondistended. MUSCULOSKELETAL: No cyanosis, or edema. Market ecchymosis and swelling about the lateral malleolus in the left side. The posterior tibialis and dorsalis pedis are preserved. BACK: Nontender without obvious deformity. No CVA tenderness. Data Data Last Documented VS Vital Signs Date Time Temp Pulse Resp B/P (MAP) Pulse Ox O2 Delivery O2 Flow Rate FiO2 01/22/18 17:00 16 01/22/18 16:09 98.2 79 154/79 (104) 99 Orders Orders Ankle, Complete ([id number]) (01/22/18 ) Ice / Cold Pack PRN (01/22/18 16:23) MDM Medical Decision Making Medical Screen Exam Complete: Yes Emergency Medical Condition: Yes Medical Record Reviewed: Yes Differential Diagnosis Fracture, contusion, sprain Narrative Course Patient refused pain meds here Xrays pending d/w Dr Iniguez at 5pm Referrals: Graciela Sawyer DPM call for appointment Med/Other Pt SpecificInfo: No Change to Meds Disposition: 01 DISCHARGE HOME Condition: Stable Jorge Cruz MD January 22, 2018 16:25
[2018-01-22] MEDS ORDERED: LISI-515 PO (17:01)
[2018-01-22] MEDS ORDERED: AMLO5TAB2 PO (17:01)
[2018-01-22] MEDS ORDERED: ALPR0.5T3 PO (17:01)
--- NOTE | 2018-01-22 17:20 | RADRPT ---
EXAM DATE: 01/22/2018 5:09 PM EDT AGE/SEX: 87 years / Female INDICATIONS: Left ankle pain after ankle gave out and twisted outwards. CLINICAL DATA: This is the patient's initial encounter. Patient reports that signs and symptoms have been present for 1 day and indicates a pain score of 7/10. MEDICAL/SURGICAL HISTORY: None. None. COMPARISON: No prior [facility] exams available for comparison. FINDINGS: There appears to be a small cortical avulsion injury along the lateral aspect of the calcaneus best s een on the AP view. Otherwise, the rest the bony structures are grossly intact.. Joints are intact w ithout dislocation or significant arthropathy. Osseous density is osteopenic. There is soft tissue s welling around the lateral malleolus. CONCLUSION: 1. Diffuse soft tissue swelling along the lateral malleolus. 2. Small faint cortical avulsion injury off the lateral aspect of the calcaneus. Electronically signed by: Tino Kerr MD 01/22/2018 5:19 PM EDT
--- NOTE | 2018-01-22 18:50 | PD ---
Data Data Last Documented VS Vital Signs Date Time Temp Pulse Resp B/P (MAP) Pulse Ox O2 Delivery O2 Flow Rate FiO2 01/22/18 17:00 16 01/22/18 16:09 98.2 79 154/79 (104) 99 Orders Orders Ankle, Complete ([id number]) (01/22/18 ) Ice / Cold Pack PRN (01/22/18 16:23) Splint Or Brace Apply/Monitor (01/22/18 18:12) MDM Supervised Visit with DANA: No Narrative Course This case is checked out to me at [address] Cruz. This patient had a ankle injury earlier today. She has swelling and pain. It is worse with weightbearing. She brought a walker with her. I reviewed her x-ray findings with her and family at bedside. Radiologist reports an avulsion fracture of the calcaneus. There is also lateral malleolus swelling. I am placing her in a posterior short leg splint. Family will call her orthopedist tomorrow for follow-up. Recommending ice and elevation. I offered her pain medication but she declines Diagnosis Primary Impression: Calcaneus fracture, left Qualified Codes: S92.035A - Nondisplaced avulsion fracture of tuberosity of left calcaneus, initial encounter for closed fracture Additional Impression: Left ankle sprain Qualified Codes: S93.492A - Sprain of other ligament of left ankle, initial encounter Additional Instruction: Follow-up with orthopedics Ice and elevate left ankle Wear splint Use walker Med/Other Pt SpecificInfo: Other Disposition: 01 DISCHARGE HOME Condition: Stable Luciano Iniguez MD January 22, 2018 18:50
== END 2018-01-22 19:50 | disposition home or self-care (01) ==
LOC: NEPD 16:01
DX: S92.035A Nondisplaced avulsion fracture of tuberosity of left calcaneus, initial encounter for closed fracture (principal); S93.492A Sprain of other ligament of left ankle, initial encounter; W19.XXXA Unspecified fall, initial encounter
CPT/HCPCS: 29515; 73610